=== PATIENT | female | born 1965 | race Caucasian/White ===

== ENCOUNTER → 2021-08-12 11:50 | Outpatient (BNVA) | payer OTHER, SELFPAY | PROVIDERS: Visit Provider Physician Assistant Medical | DX: L03.011 Cellulitis of right finger (principal) | CPT/HCPCS: 99203 ==

== ENCOUNTER → 2021-08-16 11:09 | Outpatient (BNVA) | payer OTHER, SELFPAY | PROVIDERS: Visit Provider Physician Assistant Medical | DX: L03.011 Cellulitis of right finger (principal); L08.89 Other specified local infections of the skin and subcutaneous tissue | CPT/HCPCS: 99213 ==

== ENCOUNTER 2021-08-16 14:46 | Outpatient (REF) | payer OTHER, SELFPAY | END 2021-08-16 14:47 | disposition home or self-care (01) | LOC: HO.LNP 14:46 | PROVIDERS: Visit Provider Physician Assistant Medical | DX: L03.011 Cellulitis of right finger (principal) | CPT/HCPCS: 87071; 87077; 87186; 87205 ==

== ENCOUNTER → 2021-08-19 09:18 | Outpatient (BNVA) | payer OTHER, SELFPAY | PROVIDERS: Visit Provider Physician Assistant Medical | DX: S60.410A Abrasion of right index finger, initial encounter (principal); B96.20 Unspecified Escherichia coli [E. coli] as the cause of diseases classified elsewhere; X58.XXXA Exposure to other specified factors, initial encounter | CPT/HCPCS: 99213 ==

== ENCOUNTER → 2021-08-26 09:54 | Outpatient (BNVA) | payer OTHER, SELFPAY | PROVIDERS: Visit Provider Physician Assistant Medical | DX: S60.410A Abrasion of right index finger, initial encounter (principal); W26.9XXA Contact with unspecified sharp object(s), initial encounter | CPT/HCPCS: 99213 ==

== ENCOUNTER → 2022-06-18 10:14 | Outpatient (BNVA) | payer OTHER, SELFPAY | PROVIDERS: Visit Provider Physician Assistant | DX: S16.1XXA Strain of muscle, fascia and tendon at neck level, initial encounter (principal); X58.XXXA Exposure to other specified factors, initial encounter | CPT/HCPCS: 99203 ==

== ENCOUNTER → 2022-06-23 12:59 | Outpatient (BNVA) | payer OTHER, SELFPAY | PROVIDERS: Visit Provider Physician Assistant Medical | DX: S16.1XXA Strain of muscle, fascia and tendon at neck level, initial encounter (principal); X58.XXXA Exposure to other specified factors, initial encounter | CPT/HCPCS: 99213 ==

== ENCOUNTER → 2022-07-09 11:06 | Outpatient (BNVA) | payer OTHER, SELFPAY | PROVIDERS: Visit Provider Physician Assistant | DX: S16.1XXD Strain of muscle, fascia and tendon at neck level, subsequent encounter (principal); X58.XXXD Exposure to other specified factors, subsequent encounter | CPT/HCPCS: 99213 ==

== ENCOUNTER 2022-07-24 15:00 | Outpatient (RCR) | payer OTHER, SELFPAY ==
--- NOTE | 2022-06-27 13:50 | MHC.PT.EP ---
[facility] [place] [facility] [place] [facility] [place] [facility] [address] Dante Barrios [address] [phone] F: [phone] F: [phone] F: [phone] F: [phone] Physical Therapy Plan of Care Date of Evaluation: Date of Surgery: n/a Diagnosis: cervical strain Assessment: Patient is a 56 year old female presenting to PT with complaints of pain in her neck. Pt reports onset of pain began about 1 week ago due to swining her head to avoid getting kicked at work. She presents today with impairments in pain, ROM, posture, tenderness to palpation. 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 Clinical presentation today is most consistent with signs and sx associated with possible cervical strain and pt will benefit from skilled PT to address the following problems and impairments noted upon evaluation: pain, ROM, posture, tenderness to palpation. These problems limit the patient with the following functional activities: work, ADLs, sitting, sleep, lifting. The prescribed treatment plan of care is medically necessary. Co-morbidities of none were identified and taken into considerations of plan of care. Pt was educated on HEP, role of PT, prognosis, POC. Frequency and Duration: The patient will be seen 2 x week x 5 weeks Short Term Goals: Pt will demonstrate pain at rest <2/10 in 2 weeks for improved QOL. Pt will demonstrate min to no tenderness to palpation of R UT in 2 weeks. Pt will demonstrate improved postural awareness by sitting with biomechanically correct posture without cues throughout session to improve overall postural function in 2 weeks. Grooming Assistant Goals: Pt will demonstrate improved NDI score by 10% in 4 weeks for improved overall functional mobility. Pt will demonstrate ability to work a full day with min to no pain in 4 weeks for return to PLOF at work. Pt will demonstrate ability to complete ADLs at her PLOF including lifting with min to no pain in 4 weeks. Treatment Plan: Modalities to reduce pain, spasms and effusion. Manual therapy to restore motion and function. Therapeutic exercise to improve strength and flexibility. Neuromuscular re-education for posture and balance. Therapeutic activities to return to functional activities of daily living. Electronically signed by: Shakila Harris, PT, DPT, ATC Please sign and return to therapist. Thank you for your referral.
--- NOTE | 2022-07-24 15:56 | MHC.PT.DC ---
[facility] [place] [facility] [place] Office [place] Office [address] Dante Barrios [address] [phone] F: [phone] F: [phone] F: [phone] F: [phone] Physical Therapy Discharge Report Diagnosis: cervical strain Date of Surgery: n/a Date of Evaluation: 06/27/22 Date of Discharge: 07/24/22 Treatments to Date: 8 Cancellations to Date: 1 No Shows to Date: 0 Discharge Status: Achieved Goals Improved Function Independent with HEP Discharge Summary: 07/24/2022: Pt has made good progress since beginning skilled PT allowing her to make good progress towards her goals. Her pain is much more managed at this point and she is independent in her HEP. Reviewed importance of chcf continuation of HEP for chcf carry over and management and pt with good understanding and agreement. At this point max benefits of PT have been provided and skilled PT is no longer indicated at this time. Pt is in agreement with d/c today. 07/22/2022: Continues with independence during session. Pain much improved at this point. Feels good relief from manual still. At times still moves fast with exercises so cued her to go slower. Still planning for d/c next visit. 07/17/2022: Continues with good carry over. Still needing cues for slower movement throughout as she has tendency to move fast. Discussed plan going forward and to d/c in 2 visits and pt stating she feels ready. 07/15/2022: Pt is progressing without onset of pain. Cues for slower speed of movement required at times but overall does well with form otherwise. Still getting relief from TPR so continued with this. 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 07/11/2022: Continues with good tolerance to session. No increase in pain noted. Still with some increase muscle density to R UT but pain appears to be improving overall. Discussed continuing with HEP at home. 07/04/2022: Pt tolerating session without pain. Actually has felt pretty good since last session. Cues for slow speed of movement throughout today. Advised continuing with HEP at home as tolerated. 07/02/2022: Initiated postural strengthening today. Pt with good tolerance and no increase in pain reported. Intermittent cues for proper form but good speed of movement noted. Updated HEP to reflect new exercises and printout provided. Patient is a 56 year old female presenting to PT with complaints of pain in her neck. Pt reports onset of pain began about 1 week ago due to swining her head to avoid getting kicked at work. She presents today with impairments in pain, ROM, posture, tenderness to palpation. 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 Pt expresses chcf goal of reducing pain, and is motivated to work towards this in PT. Clinical presentation today is most consistent with signs and sx associated with possible cervical strain and pt will benefit from skilled PT to address the following problems and impairments noted upon evaluation: pain, ROM, posture, tenderness to palpation. These problems limit the patient with the following functional activities: work, ADLs, sitting, sleep, lifting. The prescribed treatment plan of care is medically necessary. Co-morbidities of none were identified and taken into considerations of plan of care. Pt was educated on HEP, role of PT, prognosis, POC. Electronically signed by: Shakila Harris, PT, DPT, ATC Please sign and return to therapist. Thank you for your referral.
== END 2022-07-24 15:57 | disposition home or self-care (01) ==
LOC: HO.PTCHIC 15:00
PROVIDERS: PCP Physician Assistant Medical; Visit Provider Physician Assistant Medical
DX: S16.1XXD Strain of muscle, fascia and tendon at neck level, subsequent encounter (principal)
CPT/HCPCS: 97110; 97140; 97161

== ENCOUNTER → 2022-07-25 14:57 | Outpatient (BNVA) | payer OTHER, SELFPAY | PROVIDERS: Visit Provider Physician Assistant | DX: S16.1XXD Strain of muscle, fascia and tendon at neck level, subsequent encounter (principal); X58.XXXD Exposure to other specified factors, subsequent encounter | CPT/HCPCS: 99213 ==

== ENCOUNTER 2023-01-27 16:27 | Outpatient (REF) | payer OTHER, MEDICAID, SELFPAY ==
[2023-01-27 19:07] LABS: Influenza A PCR NEGATIVE (Negative); Influenza B PCR NEGATIVE (Negative); Resp Syncy Virus RNA Qual PCR NEGATIVE (Negative); SARS COV2 PCR INHOUSE NEGATIVE (Negative)
== END 2023-01-27 16:28 | disposition home or self-care (01) ==
LOC: HO.LAB 16:27
PROVIDERS: PCP Physician Assistant Medical; Visit Provider Internal Medicine
DX: Z20.822 Contact with and (suspected) exposure to COVID-19 (principal); R09.89 Other specified symptoms and signs involving the circulatory and respiratory systems
CPT/HCPCS: 0241U

== ENCOUNTER 2023-08-17 13:05 | Outpatient (AMB) | payer OTHER, SELFPAY ==
--- NOTE | 2023-08-17 14:09 | AM.OFFWIN_ITS ---
Intake Vital Signs 08/17/23 14:10 Height 4 ft 11 in Weight 170 lb 8 oz BMI 34.4 BP 122/80 Blood Pressure Location Rt brachial Position Sitting Pulse 83 Pulse Source Pulse Oximeter Temp 97.8 F Temp Source Temporal Artery Scan Pulse Oximetry (%) 100 Intake Visit Reasons: EP LT Ankle sprain [phone] Intake Note: pt is here for c.o left ankle sprain, fell down stairs last night Patient Tobacco Use Status: Never used Tobacco Allergies doxycycline Adverse Reaction (Mild, Verified 08/17/23 15:13) Rash Penicillins Adverse Reaction (Mild, Verified 08/17/23 15:13) Hives Medication List - Last Reconciled 08/17/23 by Bryn Rehman MD No Known Home Meds Do you need a note to return to daycare/school/sports/work: Yes HPI EP LT Ankle sprain [phone] HPI Details 57-year-old female presents to the [facility] for a sick visit. Patient tripped and fell while coming down the stairs yesterday. In the process she has hurt her left ankle which is swollen. [facility] Social History Patient Tobacco Use Status: Never used Tobacco Physical Exam Vital Signs: Last Vital Signs Temp 97.8 F 08/17/23 14:10 Pulse 83 08/17/23 14:10 BP 122/80 08/17/23 14:10 Pulse Ox 100 08/17/23 14:10 BMI result Body Mass Index 34.4 Extrem Other: Left ankle: Swollen lateral malleolus. Pain on inversion and eversion motion. Discomfort with flexion and extension. Minimal effusion. Assessment & Plan Assessment & Plan (1) Sprain of left ankle: Code(s): S93.402A - Sprain of unspecified ligament of left ankle, initial encounter Plan: X-ray images were personally reviewed by me. Possibility of for a small avulsion of the tibial tubercle. Aircast and splint provided. Crutches provided. Meloxicam prescribed. Patient was advised to avoid weight-bearing. Official x-ray report awaited. Orders: Orders XR ankle LT min 3V Today S93.402A - Sprain of unspecified ligament of left ankle, initial encounter Coding Level of Care Code Est Pt Level 4 (91101) Diagnoses Sprain of left ankle S93.402A
[2023-08-17 14:10] VITALS: BP 122/80; PULSE 83; TEMP 36.6; O2SAT 100; BMI 34.4
== END 2023-08-17 15:23 | disposition home or self-care (01) ==
PROVIDERS: PCP Physician Assistant Medical; Visit Provider Internal Medicine
DX: S93.402A Sprain of unspecified ligament of left ankle, initial encounter (principal)
CPT/HCPCS: 99214

== ENCOUNTER 2023-08-17 14:46 | Outpatient (REF) | payer OTHER, SELFPAY ==
--- NOTE | ~2023-08-17 | XR_ITS ---
EXAMINATION: XR ANKLE, LEFT CLINICAL INFORMATION: Sprain of unspecified ligament of left ankle, initial encounter COMPARISON: None available. TECHNIQUE: AP, lateral, and mortise views of the left ankle. FINDINGS: There is marked soft tissue swelling over the lateral malleolus. Small ankle joint effusion. Small well-corticated ossific density inferior to the medial malleolus is likely due to an old trauma or may represent an accessory ossicle. No acute fracture. Alignment is anatomic. Joint spaces are maintained. 2.5 mm ossific or calcific density noted medial to the metaphysis of the tibia is likely due to old trauma. Achilles enthesophyte is noted. There is calcification of the distal Achilles tendon measuring 3.6 cm in length. XR/XR ankle LT min 3V IMPRESSION: 1. No acute bony abnormality. 2. Marked soft tissue swelling over the lateral malleolus. 3. Calcification of the distal Achilles tendon.
== END 2023-08-17 14:47 | disposition home or self-care (01) ==
LOC: HO.HMGCX 14:46
PROVIDERS: Visit Provider Internal Medicine
DX: S93.402A Sprain of unspecified ligament of left ankle, initial encounter (principal); X58.XXXA Exposure to other specified factors, initial encounter; Y93.9 Activity, unspecified; Y92.9 Unspecified place or not applicable; Y99.9 Unspecified external cause status
CPT/HCPCS: 73610

== ENCOUNTER 2023-10-23 09:43 | Outpatient (AMB) | payer OTHER, SELFPAY ==
--- NOTE | 2023-10-23 10:27 | AM.OFFWIN_ITS ---
Intake Vital Signs 10/23/23 10:33 Height 4 ft 11 in Weight 175 lb 4 oz BMI 35.4 BP 124/70 Blood Pressure Location Lt brachial Position Sitting Pulse 78 Temp 97.6 F Temp Source Temporal Artery Scan Pulse Oximetry (%) 97 Oxygen Delivery Method Room Air Intake Visit Reasons: EP sore throat earache [id number] Intake Note: Pt states she has sore throat and fevers and pt states symptoms started thursday Patient Tobacco Use Status: Never used Tobacco Allergies doxycycline Adverse Reaction (Mild, Verified 10/23/23 10:27) Rash Penicillins Adverse Reaction (Mild, Verified 10/23/23 10:27) Hives Do you need a note to return to daycare/school/sports/work: Yes HPI HPI Comments History of Present Illness Details This is a 58-year-old female who presented to the walk-in clinic complaining of sore throat, sinus/nasal congestion, rhinorrhea, low-grade fevers x 3 days. 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 She denies any chest pain shortness for breath. She denies any cough. She states this happens every other year and she usually ends up with a sinus infection on antibiotics. [facility] Social History Patient Tobacco Use Status: Never used Tobacco Review of Systems Const All systems reviewed & are unremarkable except as noted in HPI and below Reports no additional complaints Eyes Reports no additional complaints ENT Reports no additional complaints Card Reports no additional complaints Resp Reports no additional complaints GI Reports no additional complaints Reports no additional complaints Musc Reports no additional complaints Skin/Breast Reports system reviewed and no additional complaints, except as documented Neuro Reports no additional complaints Psych Reports no additional complaints Endo Reports no additional complaints Rober/Lymph Reports no additional complaints Aller/Immun Reports no additional complaints Physical Exam Vital Signs: Last Vital Signs Temp 97.6 F 10/23/23 10:33 Pulse 78 10/23/23 10:33 BP 124/70 10/23/23 10:33 Pulse Ox 97 10/23/23 10:33 Oxygen Delivery Method Room Air 10/23/23 10:33 BMI result Body Mass Index 35.4 Const Other: Vital signs reviewed. Constitutional: Non-toxic appearing. No acute distress. Well-developed and well-nourished. HEENT: Normocephalic and atraumatic. There is some fluid behind tympanic membranes bilaterally but no erythema. External auditory canals without erythema or edema bilaterally. Moist mucous membranes. Mild posterior pharyngeal erythema without exudates. No peritonsillar swelling, mass, or erythema. Skin: Warm and dry. No rashes or lesions noted. Neck: Full and painless range of motion. No cervical lymphadenopathy. Cardio: Regular rate and rhythm. No murmurs, gallops, or rubs. No lower extremity edema. No JVD. Pulmonary: No respiratory distress. No accessory muscle usage. Clear to auscultation bilaterally without wheezing, crackles, or rhonchi. Gastrointestinal: Soft, nontender, and nondistended in all 4 quadrants. Musculoskeletal: Normal range of motion in joints throughout the body. No deformity or other signs of injury. Neuro: Alert and oriented x4. Cranial nerves 2-12 grossly intact. No focal deficits appreciated. Psych: Normal mood and affect. Results AMB Rapid Strep AMB Rapid Strep Negative Last Edit by Tomás Riley CMA on 10/23/23 10 :47 Results Reviewed Results Reviewed: Laboratory Last Values Strep Scn Rapid Clinic Negative 10/23/23 10:47 Assessment & Plan Assessment & Plan (1) Viral URI: Code(s): J06.9 - Acute upper respiratory infection, unspecified Plan: 58-year-old female presenting to the walk-in clinic complaining of viral URI symptoms including sore throat, nasal congestion/rhinorrhea, and low-grade fevers x3 days. On physical examination, there is fluid behind right bilateral tympanic membranes but no evidence of acute otitis media and she has mild posterior pharyngeal erythema but no exudates or tonsillar edema. Her vital signs are stable, her physical exam is otherwise benign, and she is overall nontoxic appearing. Patient presenting with signs and symptoms most consistent with acute respiratory tract infection. Recommended symptomatic management including rest, increased fluids, advil/tylenol for pain/fever, and over the counter throat lozenges/decongestants. Patient requested a prescription for a Z-Dane as she usually requires antibiotics. I explained that her symptoms are likely viral in nature and I explained the risks of unnecessary antibiotics including stomach upset, C difficile colitis, and risk for multidrug resistant organisms in the future. Patient verbalized her understanding but is still requesting antibiotics. I sent her a prescription for a Z-Dane but I requested she wait 48-72 hours prior to starting the antibiotics to see if her symptoms improved with symptomatic management and patient agreed. Patient advised to follow up here or go to the emergency room for worsening/persistent symptoms. Orders: Orders AMB Rapid Strep Screen Today Z13.9 - Encounter for screening, unspecified Medications: New azithromycin For 250 mg dose pack: take 500 mg today (day 1), then 250 mg for 4 days (days 2-5) PO 6 tabs 0RF Coding Level of Care Code Est Pt Level 3 (85531) Diagnoses Viral URI J06.9
[2023-10-23 10:33] VITALS: BP 124/70; PULSE 78; TEMP 36.4; O2SAT 97; BMI 35.4
== END 2023-10-23 11:16 | disposition home or self-care (01) ==
PROVIDERS: PCP Physician Assistant Medical; Visit Provider Physician Assistant Medical
DX: J06.9 Acute upper respiratory infection, unspecified (principal); J02.9 Acute pharyngitis, unspecified
CPT/HCPCS: 87880; 99213